=== PATIENT | male | born 1950 | race African-American/Black ===

== ENCOUNTER 2021-04-01 11:48 | Inpatient (IN) | payer OTHER ==
[~2021-04-01] VITALS: Ht 170.2 cm; Wt 76.7 kg
[2021-04-01 12:26] LABS: BASOPHILS % 0.6 % (0.0-2.0); HEMATOCRIT. 44.5 % (42.0-52.0); HEMOGLOBIN. 14.2 g/dL (14.0-18.0); LYMPHOCYTES % 17.6 % (20.0-50.0); MEAN CORPUSCULAR HEMOGLOBIN 27.9 pg (28.0-32.0); MEAN CORPUSCULAR VOLUME 87.2 fL (80.0-94.0); MEAN PLATELET VOLUME 8.5 fl (7.4-10.4); MONOCYTES % 10.4 % (2.0-8.0); NEUTROPHILS % 68.4 % (40.0-76.0); PLATELET 163 x1000/uL (130-400); RED CELL DISTRIBUTION WIDTH 16.3 % (11.6-14.6)
[2021-04-01 12:32] LABS: CHLORIDE 106 mEq/L (98-107)
[2021-04-01 12:36] LABS: ETHANOL BLOOD < 10 mg/dL
[2021-04-01 12:48] LABS: CLARITY URINE CLEAR (CLEAR); COLOR URINE YELLOW (YELLOW); KETONES URINE NEGATIVE (NEGATIVE); LEUKOCYTE ESTERASE URINE NEGATIVE (NEGATIVE); NITRITE URINE NEGATIVE (NEGATIVE); OCCULT BLOOD URINE NEGATIVE (NEGATIVE); PROTEIN URINE NEGATIVE (NEGATIVE); SPECIFIC GRAVITY URINE 1.012 (1.005-1.030); UROBILINOGEN URINE 0.2 E.U./dL (0.2-1.0)
[2021-04-01 12:48] LABS: CREATINE KINASE 364 IU/L (39-308)
[2021-04-01 13:25] LABS: *AMPHETAMINES SCREEN URINE NEGATIVE (NEGATIVE); *BARBITURATES SCREEN URINE NEGATIVE (NEGATIVE); *BENZODIAZEPINES SCREEN URINE NEGATIVE (NEGATIVE); *COCAINE SCREEN URINE NEGATIVE (NEGATIVE); CANNABINOID URINE SCREEN NEGATIVE (NEGATIVE); METHADONE URINE SCREEN NEGATIVE (NEGATIVE); OPIATES URINE SCREEN NEGATIVE (NEGATIVE); PHENCYCLIDINE URINE SCREEN NEGATIVE (NEGATIVE)
[2021-04-01] MEDS ORDERED: IOHEXOL-350 100 ML BOTTLE ONE (14:52)
[2021-04-01] MEDS ORDERED: ONDANSETRON HCL 4MG/2ML INJ IV PRN (19:30)
[2021-04-01] MEDS ORDERED: MAGNESIUM/ALUMINUM HYDROXIDE/SIMETHICONE 30ML UDC PO PRN (19:30)
[2021-04-01] MEDS ORDERED: NITROGLYCERIN 0.4MG TABLET SL SL PRN (19:30)
[2021-04-01] MEDS ORDERED: ACETAMINOPHEN 325MG TABLET PO PRN ×2 (19:30)
[2021-04-01] MEDS ORDERED: DOCUSATE SODIUM 100MG CAPSULE PO PRN (19:30)
[2021-04-01] MEDS ORDERED: CLONIDINE 0.1MG TABLET PO PRN (19:30)
[2021-04-01] MEDS ORDERED: KETOROLAC 15MG/ML VIAL IV PRN (19:30)
[2021-04-01] MEDS ORDERED: IPRATROPIUM/ALBUTEROL 0.5-3(2.5)MG/3ML NEB NEB PRN (19:30)
[2021-04-01] MEDS ORDERED: GUAIFENESIN 200MG/10ML SUGAR FREE UDC PO PRN (19:30)
[2021-04-01 20:01] LABS: T4 FREE 0.93 ng/dL (0.76-1.46)
[2021-04-01 20:12] LABS: FOLIC ACID (FOLATE) SERUM 18.9 ng/mL (>5.38)
[2021-04-01 23:00] LABS: CREATINE KINASE 264 IU/L (39-308)
[2021-04-01 23:01] LABS: CREATINE KINASE MB FRACTION 2.7 ng/mL (0.5-3.6)
[2021-04-01 23:37] VITALS: BP 172/95
[2021-04-02] VITALS (8 sets, daily range): BP systolic 115–172; BP diastolic 74–98
[2021-04-02] MEDS: LISINOPRIL 20MG TABLET PO SCH ×3 (00:26→20:55)
[2021-04-02] MEDS: ENOXAPARIN 40MG/0.4ML SYR SUBCUT SCH ×2 (00:26→20:55)
[2021-04-02] MEDS: FAMOTIDINE 20MG TABLET PO SCH ×3 (00:26→20:55)
[2021-04-02] MEDS ORDERED: NETA2.5D OP (01:00)
[2021-04-02] MEDS ORDERED: PRED5DRO22 OP (01:00)
[2021-04-02] MEDS ORDERED: ISOS60TA76 MT (01:00)
[2021-04-02] MEDS ORDERED: LATA2.5D4 EACHEYE (01:00)
[2021-04-02] MEDS ORDERED: DORZ10DR12 EACHEYE (01:00)
[2021-04-02] MEDS ORDERED: METO-411 MT (01:00)
[2021-04-02] MEDS ORDERED: DEXT15DR5 EACHEYE (01:00)
[2021-04-02] MEDS ORDERED: ATOR-2 MT (01:00)
[2021-04-02] MEDS ORDERED: TAMS-11 MT (01:03)
[2021-04-02] MEDS ORDERED: VARE1TAB21 MT (01:03)
[2021-04-02] MEDS ORDERED: OMEP20CA14 MT (01:03)
[2021-04-02] MEDS ORDERED: ASPI-1497 MT (01:03)
[2021-04-02] MEDS ORDERED: *PATIENT'S OWN MEDICATION STORAGE XX SCH (03:00)
[2021-04-02] MEDS: ASPIRIN 325MG EC TABLET PO SCH (09:08)
[2021-04-02 09:35] LABS: BASOPHILS % 0.9 % (0.0-2.0); EOSINOPHILS % 4.2 % (0.0-5.0); HEMATOCRIT. 46.7 % (42.0-52.0); HEMOGLOBIN. 15.2 g/dL (14.0-18.0); LYMPHOCYTES % 22.6 % (20.0-50.0); MEAN CORPUSCULAR HEMOGLOBIN 28.3 pg (28.0-32.0); MEAN CORPUSCULAR VOLUME 87.2 fL (80.0-94.0); MEAN PLATELET VOLUME 8.6 fl (7.4-10.4); MONOCYTES % 10.1 % (2.0-8.0); NEUTROPHILS % 62.2 % (40.0-76.0); PLATELET 181 x1000/uL (130-400); RED BLOOD CELL COUNT 5.36 mill/uL (4.7-6.1); RED CELL DISTRIBUTION WIDTH 16.5 % (11.6-14.6)
[2021-04-02 09:53] LABS: CHLORIDE 100 mEq/L (98-107)
[2021-04-02 10:04] LABS: PHOSPHORUS 1.8 mg/dL (2.5-4.9)
[2021-04-02 10:05] LABS: CREATINE KINASE 233 IU/L (39-308); CREATINE KINASE MB FRACTION 2.4 ng/mL (0.5-3.6)
[2021-04-02] MEDS: POLYVINYL ALCOHOL OPHTH DROPS 15ML BOTHEYE SCH ×2 (16:20→23:51)
[2021-04-02] MEDS: DORZOLAM/TIMOLOL 2.23/0.68% OPHTH DROPS 10ML EACHEYE SCH (16:21)
[2021-04-02] MEDS: LATANOPROST 0.005% OPHTH DROPS 2.5ML EACHEYE SCH (20:55)
[2021-04-03 04:00] VITALS: BP 123/76
[2021-04-03] MEDS: POLYVINYL ALCOHOL OPHTH DROPS 15ML BOTHEYE SCH ×4 (05:27→23:29)
[2021-04-03 08:00] VITALS: BP 160/91
[2021-04-03] MEDS: LISINOPRIL 20MG TABLET PO SCH ×2 (09:56→20:53)
[2021-04-03] MEDS: FAMOTIDINE 20MG TABLET PO SCH ×2 (09:56→20:53)
[2021-04-03] MEDS: DORZOLAM/TIMOLOL 2.23/0.68% OPHTH DROPS 10ML EACHEYE SCH ×2 (09:56→17:15)
[2021-04-03] MEDS: ASPIRIN 325MG EC TABLET PO SCH (09:56)
[2021-04-03 17:00] VITALS: BP 176/96
[2021-04-03 20:00] VITALS: BP 147/80
[2021-04-03 20:22] VITALS: BP 147/80
[2021-04-03] MEDS: LATANOPROST 0.005% OPHTH DROPS 2.5ML EACHEYE SCH (20:53)
[2021-04-03] MEDS: ENOXAPARIN 40MG/0.4ML SYR SUBCUT SCH (20:53)
[2021-04-04] VITALS (7 sets, daily range): BP systolic 96–125; BP diastolic 52–86
[2021-04-04] MEDS: POLYVINYL ALCOHOL OPHTH DROPS 15ML BOTHEYE SCH ×4 (05:43→23:46)
[2021-04-04] MEDS: LISINOPRIL 20MG TABLET PO SCH ×2 (08:54→21:44)
[2021-04-04] MEDS: FAMOTIDINE 20MG TABLET PO SCH ×2 (08:54→21:43)
[2021-04-04] MEDS: DORZOLAM/TIMOLOL 2.23/0.68% OPHTH DROPS 10ML EACHEYE SCH ×2 (08:54→18:02)
[2021-04-04] MEDS: ASPIRIN 325MG EC TABLET PO SCH (08:54)
[2021-04-04] MEDS: ENOXAPARIN 40MG/0.4ML SYR SUBCUT SCH (21:43)
[2021-04-04] MEDS: LATANOPROST 0.005% OPHTH DROPS 2.5ML EACHEYE SCH (21:43)
[2021-04-05 00:17] VITALS: BP 113/66
[2021-04-05 04:00] VITALS: BP 114/79
[2021-04-05] MEDS: POLYVINYL ALCOHOL OPHTH DROPS 15ML BOTHEYE SCH (06:44)
[2021-04-05 08:00] VITALS: BP 153/77
[2021-04-05] MEDS: ASPIRIN 325MG EC TABLET PO SCH (08:23)
[2021-04-05] MEDS: LISINOPRIL 20MG TABLET PO SCH (08:23)
[2021-04-05] MEDS: FAMOTIDINE 20MG TABLET PO SCH (08:23)
[2021-04-05] MEDS: DORZOLAM/TIMOLOL 2.23/0.68% OPHTH DROPS 10ML EACHEYE SCH (08:24)
[2021-04-05 11:00] VITALS: BP 153/77
== END 2021-04-05 13:32 | disposition home or self-care (01) | DRG 92 ==
LOC: ER 11:48 → 6WST 16:36 → ENRESERV 21:32 → 6WST 23:53
PROVIDERS: ADMIT Internal Medicine; ATTEND Internal Medicine
DX: G92 Toxic encephalopathy (principal); M62.82 Rhabdomyolysis; I10 Essential (primary) hypertension; G40.909 Epilepsy, unspecified, not intractable, without status epilepticus; F14.10 Cocaine abuse, uncomplicated; Z86.73 Personal history of transient ischemic attack (TIA), and cerebral infarction without residual deficits
CPT/HCPCS: 36415; 70496; 70551; 71045; 80053; 80061; 80305; 80307; 80320; 80329; 81003; 82140; 82550; 82553; 82607; 82746; 82962; 83036; 83540; 83550; 83735; 83880; 84100; 84145; 84439; 84443; 84484; 85025; 93005; 93306; 93970; 97161; 99285; J1650; Q9967; G0480